=== PATIENT | female | born 1950 | race African-American/Black ===

== ENCOUNTER 2021-02-05 05:59 | Observation (INO) | payer MEDICARE ==
[2021-01-31 08:47] LABS: BASOPHILS % 0.5 % (0.0-1.0); EOSINOPHILS # (AUTO) 0.3 (0.0-0.4); EOSINOPHILS % 4.8 % (0.0-6.0); HEMATOCRIT 42.3 % (34.2-44.1); HEMOGLOBIN 13.4 g/dL (12.0-16.0); LYMPHOCYTES # (AUTO) 2.1 (1.0-3.2); LYMPHOCYTES % 32.4 % (18.0-39.1); MEAN CORPUSCULAR HEMOGLOBIN 28.7 pg (28-32); MEAN CORPUSCULAR HGB CONC 31.7 g/dL (31-35); MEAN CORPUSCULAR VOLUME 90.6 fL (81-99); MONOCYTES # (AUTO) 0.5 (0.2-0.8); MONOCYTES % 8.3 % (4.4-11.3); NEUTROPHILS # (AUTO) 3.5 (2.1-6.9); NEUTROPHILS % 53.7 % (38.7-80.0); PLATELET COUNT 198 x10e3/uL (140-360); RED BLOOD COUNT 4.67 x10e6/uL (3.6-5.1); RED CELL DISTRIBUTION WIDTH 13.3 % (11.7-14.4)
[2021-01-31 09:09] LABS: ANION GAP 12.1 mmol/L (8-16); BLOOD UREA NITROGEN 16 mg/dL (7-26); BUN/CREATININE RATIO 21 (6-25); CALCIUM 9.6 mg/dL (8.4-10.2); CARBON DIOXIDE 28 mmol/L (22-29); CHLORIDE 108 mmol/L (98-107); CREATININE, SERUM 0.78 mg/dL (0.57-1.11); EST GLOMERULAR FILTRATION RATE > 60 ML/MIN (60-); GLUCOSE 75 mg/dL (74-118); POTASSIUM 4.1 mmol/L (3.5-5.1); SODIUM 144 mmol/L (136-145)
[~2021-02-05] VITALS: Ht 167.6 cm; Wt 74.8 kg
[~2021-02-05 05:59] MED LIST: ASPIRIN81 MG PO; FUROSEMIDE40 MG PO; LOSARTAN POTAS100 MG PO
[2021-02-05] MEDS ORDERED: COREG6.25 MG PO (06:53)
[2021-02-05] MEDS ORDERED: GABAPENTIN 300 MG CAP ONE (07:05)
[2021-02-05] MEDS ORDERED: CELECOXIB 200 MG CAP ONE (07:05)
[2021-02-05] MEDS ORDERED: DEXAMETHASONE SOD PHOS 10 MG/1 ML VIAL ONE (07:05)
[2021-02-05] MEDS ORDERED: CEFAZOLIN SOD 1 GM/NS 50ML 100 ML IV ONE (07:06)
[2021-02-05] MEDS ORDERED: ROPIVACAINE 246.25 MG, EPINEPHRINE HCL 1:1000 1ML 0.5 MG, CLONIDINE HCL 0.08 MG, KETORO... INJ ONE ×5 (08:00)
[2021-02-05] MEDS ORDERED: VANCOMYCIN HCL 1,000 MG ONE (08:09)
[2021-02-05] MEDS ORDERED: SODIUM CHLORIDE 0.9% 500ML 500 ML ONE (08:09)
[2021-02-05] MEDS ORDERED: TRANEXAMIC ACID 1,000 MG/10 ML ML ONE (08:10)
[2021-02-05] MEDS ORDERED: DIPHENHYDRAMINE HCL INJ 50 MG/ML VIAL IV PRN (10:45)
[2021-02-05] MEDS ORDERED: ACETAMINOPHEN 650 MG SUPP PR PRN (10:45)
[2021-02-05] MEDS ORDERED: HYDROCODONE/APAP 7.5MG-325MG 1 EA TAB PO PRN (10:45)
[2021-02-05] MEDS ORDERED: DOCUSATE SODIUM 100 MG CAP PO PRN (10:45)
[2021-02-05] MEDS ORDERED: HYDROCODONE/APAP 5MG-325MG TAB PO PRN (10:45)
[2021-02-05] MEDS ORDERED: KETOROLAC TROMETHAMINE 30 MG/ML VIAL IV PRN (10:45)
[2021-02-05] MEDS ORDERED: ONDANSETRON HCL INJ 2MG/ML 2ML 2 MG/ML VIAL IV PRN (10:45)
[2021-02-05] MEDS ORDERED: FENTANYL CITRATE/PF 100MCG/2 ML INJ ONE ×2 (11:03→12:30)
[2021-02-05 12:01] VITALS: BP 122/63
[2021-02-05] MEDS ORDERED: ROPIVACAINE 0.5% 5 MG/ML 30 ML SDV ONE (12:16)
[2021-02-05] MEDS ORDERED: MIDAZOLAM HCL 2 MG/2 ML VIAL ONE (12:30)
[2021-02-05 13:00] VITALS: BP 122/63
[2021-02-05] MEDS ORDERED: ONDANSETRON HCL INJ 2MG/ML 2ML 2 MG/ML VIAL ONE (13:09)
[2021-02-05] MEDS ORDERED: DEXAMETHASONE SOD PHOS INJ 4 MG/ML VIAL ONE (13:09)
[2021-02-05] MEDS ORDERED: LIDOCAINE HCL 2% LOCAL INJ 5 ML SDV VIAL INJ ONE (13:09)
[2021-02-05] MEDS ORDERED: PROPOFOL IV EMULSION 10 MG/ML 20 ML VIAL ONE (13:09)
[2021-02-05] MEDS ORDERED: SEVOFLURANE INHAL SOLN 250 ML PEN BTL ONE (13:09)
[2021-02-05] MEDS ORDERED: ACETAMINOPHEN 1000 MG/100 ML IV PRN (14:00)
[2021-02-05 16:14] VITALS: BP 129/63
[2021-02-05] MEDS ORDERED: CARVEDILOL 3.125 MG TAB PO PRN (16:45)
[2021-02-05] MEDS: CELECOXIB 100 MG CAP PO SCH (18:14)
[2021-02-05] MEDS: CEFAZOLIN SOD 1 GM/NS 50ML 50 ML IV SCH (18:14)
[2021-02-05] MEDS: ASPIRIN 325 MG TAB PO SCH (18:14)
[2021-02-05] MEDS: SODIUM CHLORIDE 0.9% 1000ML 1,000 ML IV SCH ×2 (18:14→20:45)
[2021-02-05 20:00] VITALS: BP_SYST 113; BP_SYST 129; BP_DIAS 61; BP_DIAS 63
[2021-02-05 20:45] VITALS: BP 113/61
[2021-02-05] MEDS ORDERED: ZOLPIDEM TARTRATE 5 MG TAB PO PRN (21:00)
[2021-02-06] VITALS: BP 103/64
[2021-02-06] MEDS: CEFAZOLIN SOD 1 GM/NS 50ML 50 ML IV SCH ×2 (01:48→08:02)
[2021-02-06 04:00] VITALS: BP 111/65
[2021-02-06 05:08] LABS: BASOPHILS % 0.1 % (0.0-1.0); HEMATOCRIT 34.2 % (34.2-44.1); LYMPHOCYTES # (AUTO) 2.2 (1.0-3.2); LYMPHOCYTES % 16.8 % (18.0-39.1); MEAN CORPUSCULAR HEMOGLOBIN 28.7 pg (28-32); MEAN CORPUSCULAR HGB CONC 32.2 g/dL (31-35); MEAN CORPUSCULAR VOLUME 89.3 fL (81-99); MONOCYTES # (AUTO) 1.4 (0.2-0.8); MONOCYTES % 10.4 % (4.4-11.3); NEUTROPHILS # (AUTO) 9.6 (2.1-6.9); NEUTROPHILS % 72.2 % (38.7-80.0); PLATELET COUNT 179 x10e3/uL (140-360); RED BLOOD COUNT 3.83 x10e6/uL (3.6-5.1); RED CELL DISTRIBUTION WIDTH 13.2 % (11.7-14.4)
[2021-02-06 05:26] LABS: ANION GAP 10.2 mmol/L (8-16); BLOOD UREA NITROGEN 15 mg/dL (7-26); BUN/CREATININE RATIO 20 (6-25); CALCIUM 8.4 mg/dL (8.4-10.2); CARBON DIOXIDE 24 mmol/L (22-29); CHLORIDE 110 mmol/L (98-107); CREATININE, SERUM 0.75 mg/dL (0.57-1.11); EST GLOMERULAR FILTRATION RATE > 60 ML/MIN (60-); GLUCOSE 93 mg/dL (74-118); POTASSIUM 4.2 mmol/L (3.5-5.1); SODIUM 140 mmol/L (136-145)
[2021-02-06] MEDS: SODIUM CHLORIDE 0.9% 1000ML 1,000 ML IV SCH ×2 (06:45→15:27)
[2021-02-06 07:25] VITALS: BP 117/56
[2021-02-06 08:02] VITALS: BP 117/56
[2021-02-06] MEDS: ASPIRIN 325 MG TAB PO SCH ×2 (08:02→16:02)
[2021-02-06] MEDS: CELECOXIB 100 MG CAP PO SCH (08:02)
[2021-02-06] MEDS ORDERED: LOSARTAN POTASSIUM 100 MG TAB PO SCH (09:00)
[2021-02-06] MEDS ORDERED: FUROSEMIDE 40 MG TAB PO SCH (09:00)
[2021-02-06 11:40] VITALS: BP 109/54
[2021-02-06] MEDS ORDERED: ONDANSETRON HCL 4 MG ORAL DISINTEGRATING TAB PO PRN (14:00)
[2021-02-06 16:16] VITALS: BP 123/59
[2021-02-06] MEDS ORDERED: CELECOXIB 200 MG CAP PO SCH (17:00)
== END 2021-02-06 17:09 | disposition home or self-care (01) ==
LOC: OR 05:59 → PACU V 10:37 → MED/SURG 11:45
PROVIDERS: ADMIT Specialist; ATTEND Specialist
DX: M17.0 Bilateral primary osteoarthritis of knee (principal); M06.9 Rheumatoid arthritis, unspecified; I10 Essential (primary) hypertension; Z01.818 Encounter for other preprocedural examination; Z20.822 Contact with and (suspected) exposure to COVID-19; E11.9 Type 2 diabetes mellitus without complications; I11.9 Hypertensive heart disease without heart failure
CPT/HCPCS: 27447; 36415 ×2; 71046; 73560; 80048 ×2; 82948; 85025 ×2; 86850; 86900; 86920; 93005; 97116; 97162; 97530 ×2; C1713; G0378 ×2; J0171; J0690 ×2; J1100 ×2; J1885; J2001; J2405; J2704; J2795; J3010; J3370; J7030; J7040; U0002; J2250